=== PATIENT | female | born 1980 | race Asian ===

== ENCOUNTER 2022-02-12 11:40 | Emergency (ER) | payer BC ==
[2022-02-12 12:00] VITALS: BP 115/60; PULSE 62; TEMP 97.8; BMI 21.5
[2022-02-12] MEDS ORDERED: LIDOCAINE 5% TOPICAL PATCH TP ONE (12:25)
[2022-02-12] MEDS ORDERED: KETOROLAC TROMETHAMINE 60 MG/2 ML VIAL IM ONE (12:25)
[2022-02-12] MEDS ORDERED: METHOCARBAMOL 500 MG TABLET PO ONE (12:25)
[2022-02-12] MEDS ORDERED: METHOCARBAMOL 500 MG TABLET ONE (12:27)
[2022-02-12] MEDS ORDERED: KETOROLAC TROMETHAMINE 60 MG/2 ML VIAL ONE (12:27)
[2022-02-12] MEDS ORDERED: LIDOCAINE 5% TOPICAL PATCH ONE (12:27)
[2022-02-12] MEDS ORDERED: LIDOCAINE PATCH REMOVAL MC SCH (22:00)
== END 2022-02-12 13:25 | disposition home or self-care (01) ==
LOC: FER 11:40
PROC: 3E023GC Introduction of Other Therapeutic Substance into Muscle, Percutaneous Approach (ICD-10-PCS; principal; 2022-02-12)
DX: M62.838 Other muscle spasm (principal)
CPT/HCPCS: 81025; 99284-25

== ENCOUNTER 2022-11-29 08:15 | Day surgery (SDC) | payer BC ==
[2022-11-28 14:47] VITALS: BMI 21.4
[~2022-11-29 08:15] MED LIST: LACTATED RINGERS SOLUTION 1,000 ML IV SCH; ONDANSETRON 4 MG/2 ML VIAL IVPUSH PRN; oxyCODONE HCL 5 MG TABLET PO PRN
[2022-11-29] MEDS ORDERED: LIDOCAINE HCL 2% (20ML MULTI-DOSE VIAL) ONE (09:32)
[2022-11-29] MEDS ORDERED: PROPOFOL 20 ML ONE (09:35)
[2022-11-29] MEDS ORDERED: MIDAZOLAM HCL 2 MG/2 ML SINGLE DOSE VIAL ONE (09:35)
[2022-11-29 10:51] VITALS: BP 103/61; RESP 16; TEMP 97.6
[2022-11-29 10:54] VITALS: PULSE 70
== END 2022-11-29 10:50 | disposition home or self-care (01) ==
LOC: FASU 08:15
PROVIDERS: ATTEND Orthopaedic Surgery Hand Surgery
PROC: 01N50ZZ Release Median Nerve, Open Approach (ICD-10-PCS; principal; 2022-11-29 09:53)
DX: G56.02 Carpal tunnel syndrome, left upper limb (principal)
CPT/HCPCS: 84703

== ENCOUNTER → 2023-10-10 | Day surgery (SDC) | payer BC | END | disposition home or self-care (01) | LOC: JMAMMO-SUR 12:37 | PROVIDERS: ATTEND Obstetrics & Gynecology | PROC: 0H9T3ZX Drainage of Right Breast, Percutaneous Approach, Diagnostic (ICD-10-PCS; principal; 2023-10-10) | DX: C50.811 Malignant neoplasm of overlapping sites of right female breast (principal); C77.3 Secondary and unspecified malignant neoplasm of axilla and upper limb lymph nodes | CPT/HCPCS: 19083; 19084; 77065-TC; 87899; 88305-TC; 88341-TC; 88342-TC; A4648 ==